=== PATIENT | male | born 1965 | race Hispanic/Latino ===

== ENCOUNTER 2017-04-16 04:08 | Inpatient (IN) | payer OTHER ==
[~2017-04-16] VITALS: Ht 175.3 cm; Wt 94.4 kg
[2017-04-16 05:10] LABS: BASOPHILS % (AUTO) 0.5 % (0.0-5.0); EOSINOPHILS % (AUTO) 2.1 % (0.0-8.0); HEMATOCRIT 42.4 % (42-54); MEAN CORPUSCULAR HEMOGLOBIN 29.1 pg (27.0-33.0); MEAN CORPUSCULAR VOLUME 85.6 fL (79-99); MONOCYTES % (AUTO) 8.7 % (3.0-13.0); NEUTROPHILS % (AUTO) 59.7 % (40.0-77.0); PLATELET COUNT (AUTO) 163 K/uL (130-400); RED BLOOD CELL COUNT(AUTO) 4.95 MIL/uL (4.50-6.20); RED CELL DISTRIBUTION WIDTH 14.3 % (11.0-15.5); WHITE BLOOD COUNT (AUTO) 7.6 K/uL (4.8-10.8)
[2017-04-16 05:18] LABS: INR 1.02 (0.85-1.15); PARTIAL THROMBOPLASTIN TIME 27.7 SEC (26.3-35.5); PROTHROMBIN TIME 10.7 SEC (9.6-11.6)
[2017-04-16 05:24] LABS: CREATININE 0.8 mg/dL (0.5-1.5); POTASSIUM 3.4 mmol/L (3.5-5.1)
[2017-04-16 05:36] LABS: ALBUMIN 3.6 g/dL (3.5-5.0); BILIRUBIN,TOTAL 0.6 mg/dL (0.2-1.0); TOTAL PROTEIN, SERUM 7.1 g/dL (6.0-8.3)
[2017-04-16] MEDS ORDERED: IPRATROPIUM/ALBUTEROL SULFATE 3 ML SOLUTION IH ONE (05:58)
[2017-04-16] MEDS ORDERED: ENOXAPARIN SODIUM 100 MG/1 ML SQ ONE (09:56)
[2017-04-16] MEDS ORDERED: FUROSEMIDE 10 MG/ML 4ML VIAL ONE (09:57)
[2017-04-16] MEDS ORDERED: LISINOPRIL 5 MG TABLET ONE (09:57)
[2017-04-16] MEDS ORDERED: ASPIRIN 325 MG TABLET ONE (09:57)
[2017-04-16] MEDS ORDERED: NITROGLYCERIN 1GM/1 INCH PACKET TD ONE (09:58)
[2017-04-16 13:35] LABS: CREATINE KINASE MB 3.4 ng/mL (0.5-3.6); TROPONIN I 0.36 ng/mL (0.00-0.06)
[2017-04-16] MEDS ORDERED: POTASSIUM CHLORIDE 10% ELIXIR 20 MEQ/15 ML UDCUP PO PRN (17:00)
[2017-04-16] MEDS ORDERED: POTASSIUM CHLORIDE 20MEQ/100ML 100 ML IV PRN (17:00)
[2017-04-16] MEDS ORDERED: LIDOCAINE HCL-MPF 1% 2ML VIAL IVP PRN (17:00)
[2017-04-16 17:20] VITALS: BP 147/97
[2017-04-16] MEDS ORDERED: ONDANSETRON HCL 4 MG/2 ML VIAL IVP PRN (17:30)
[2017-04-16] MEDS: FUROSEMIDE 10 MG/ML 4ML VIAL IV SCH (17:52)
[2017-04-16] MEDS: POTASSIUM CHLORIDE 20 MEQ ERTAB PO PRN ×2 (17:52→21:14)
[2017-04-16] MEDS ORDERED: SODIUM CHLORIDE 0.9% 10 ML VIAL IVP PRN (18:00)
[2017-04-16] MEDS: NITROGLYCERIN 1GM/1 INCH PACKET TD SCH (18:56)
[2017-04-16 20:31] VITALS: BP 157/75
[2017-04-16] MEDS: LISINOPRIL 2.5 MG TABLET PO SCH (21:11)
[2017-04-16] MEDS: FAMOTIDINE 20MG TAB 20 MG TAB PO SCH (21:11)
[2017-04-16 23:20] VITALS: BP 150/95
[2017-04-17] VITALS (7 sets, daily range): BP systolic 112–136; BP diastolic 58–96
[2017-04-17] MEDS: NITROGLYCERIN 1GM/1 INCH PACKET TD SCH ×3 (03:11→17:36)
[2017-04-17] MEDS: FUROSEMIDE 10 MG/ML 4ML VIAL IV SCH (04:58)
[2017-04-17 06:08] LABS: CREATININE 1.1 mg/dL (0.5-1.5); MAGNESIUM 1.9 mg/dL (1.80-2.40); POTASSIUM 3.4 mmol/L (3.5-5.1)
[2017-04-17] MEDS ORDERED: IOPAMIDOL-370 100 ML VIAL IV ONE (10:23)
[2017-04-17] MEDS: FUROSEMIDE 40 MG TABLET PO SCH (12:13)
[2017-04-17] MEDS: FAMOTIDINE 20MG TAB 20 MG TAB PO SCH ×2 (12:13→20:42)
[2017-04-17] MEDS: ASPIRIN 325MG EC TAB 325 MG TABLET.DR PO SCH (12:13)
[2017-04-17] MEDS: POTASSIUM CHLORIDE 20 MEQ ERTAB PO PRN ×2 (12:14→17:37)
[2017-04-17] MEDS: LISINOPRIL 2.5 MG TABLET PO SCH ×2 (12:15→20:39)
[2017-04-17] MEDS: ENOXAPARIN SODIUM 30 MG/0.3 ML SQ SCH (12:17)
[2017-04-17] MEDS: CARVEDILOL 3.125 MG TABLET PO SCH ×2 (12:17→20:42)
[2017-04-17] MEDS: ACETAMINOPHEN EXTRA STRENGTH 500 MG TABLET PO PRN ×2 (12:25→20:39)
[2017-04-18] MEDS: NITROGLYCERIN 1GM/1 INCH PACKET TD SCH ×3 (01:48→16:58)
[2017-04-18 03:45] VITALS: BP 126/82
[2017-04-18 05:37] LABS: CREATININE 1.1 mg/dL (0.5-1.5); POTASSIUM 3.8 mmol/L (3.5-5.1)
[2017-04-18 07:51] VITALS: BP 130/77
[2017-04-18] MEDS: CARVEDILOL 3.125 MG TABLET PO SCH ×2 (09:31→22:31)
[2017-04-18] MEDS: LISINOPRIL 2.5 MG TABLET PO SCH ×2 (09:31→22:31)
[2017-04-18] MEDS: ENOXAPARIN SODIUM 30 MG/0.3 ML SQ SCH (09:32)
[2017-04-18] MEDS ORDERED: REGADENOSON 0.4 MG/5 ML PF SYG IVP SCH (10:15)
[2017-04-18 13:25] VITALS: BP 122/72
[2017-04-18] MEDS: FUROSEMIDE 40 MG TABLET PO SCH (13:34)
[2017-04-18] MEDS: FAMOTIDINE 20MG TAB 20 MG TAB PO SCH ×2 (13:34→22:31)
[2017-04-18] MEDS: ASPIRIN 325MG EC TAB 325 MG TABLET.DR PO SCH (13:34)
[2017-04-18 16:31] VITALS: BP 100/71
[2017-04-18 20:00] VITALS: BP 133/84
[2017-04-18 23:37] VITALS: BP 124/71
[2017-04-19] MEDS: NITROGLYCERIN 1GM/1 INCH PACKET TD SCH ×2 (02:17→08:51)
[2017-04-19 04:21] VITALS: BP 101/74
[2017-04-19 08:03] VITALS: BP 121/84
[2017-04-19] MEDS: ASPIRIN 325MG EC TAB 325 MG TABLET.DR PO SCH (08:46)
[2017-04-19] MEDS: FAMOTIDINE 20MG TAB 20 MG TAB PO SCH ×2 (08:46→20:37)
[2017-04-19] MEDS: CARVEDILOL 3.125 MG TABLET PO SCH ×2 (08:46→20:38)
[2017-04-19] MEDS: FUROSEMIDE 40 MG TABLET PO SCH (08:46)
[2017-04-19] MEDS: LISINOPRIL 2.5 MG TABLET PO SCH ×2 (08:48→20:37)
[2017-04-19] MEDS: ENOXAPARIN SODIUM 30 MG/0.3 ML SQ SCH (08:50)
[2017-04-19 11:57] VITALS: BP 133/74
[2017-04-19 16:37] VITALS: BP 113/78
[2017-04-19 20:03] VITALS: BP 148/88
[2017-04-20] VITALS (14 sets, daily range): BP systolic 112–141; BP diastolic 73–87
[2017-04-20] MEDS: FUROSEMIDE 40 MG TABLET PO SCH ×2 (09:00→15:09)
[2017-04-20] MEDS: ENOXAPARIN SODIUM 30 MG/0.3 ML SQ SCH (09:00)
[2017-04-20] MEDS: ASPIRIN 81 MG EC TAB PO SCH (09:00)
[2017-04-20] MEDS ORDERED: HEPARIN SODIUM 1000UNIT/ML 10ML VIAL ONE (12:11)
[2017-04-20] MEDS ORDERED: BIVALIRUDIN 250 MG/VIAL IV ONE (12:11)
[2017-04-20] MEDS ORDERED: IOPAMIDOL-370 75 ML VIAL IV ONE (12:12)
[2017-04-20] MEDS ORDERED: IOPAMIDOL-370 100 ML VIAL IV ONE (12:12)
[2017-04-20] MEDS ORDERED: LIDOCAINE HCL 2% 20ML ONE (12:14)
[2017-04-20] MEDS ORDERED: MIDAZOLAM HCL 1 MG/ML 2ML VIAL ONE (12:54)
[2017-04-20] MEDS ORDERED: FENTANYL CITRATE PF 50 MCG/1 ML 2ML VIAL ONE (13:01)
[2017-04-20] MEDS ORDERED: ISOVUE-370 50ML VIAL IV ONE (13:16)
[2017-04-20] MEDS ORDERED: SODIUM CHLORIDE 0.9% 1000ML 1,000 ML IV SCH (13:33)
[2017-04-20] MEDS: LISINOPRIL 2.5 MG TABLET PO SCH ×2 (15:09→20:02)
[2017-04-20] MEDS: FAMOTIDINE 20MG TAB 20 MG TAB PO SCH ×2 (15:10→20:02)
[2017-04-20] MEDS: CARVEDILOL 3.125 MG TABLET PO SCH ×2 (15:11→15:25)
[2017-04-20] MEDS: ACETAMINOPHEN EXTRA STRENGTH 500 MG TABLET PO PRN (20:09)
[2017-04-21] MEDS ORDERED: SODIUM CHLORIDE 0.9% 1000ML 1,000 ML IV ONE (00:09)
[2017-04-21 03:00] VITALS: BP 127/84
[2017-04-21 05:59] LABS: BASOPHILS % (AUTO) 0.5 % (0.0-5.0); EOSINOPHILS % (AUTO) 4.2 % (0.0-8.0); HEMATOCRIT 42.7 % (42-54); LYMPHOCYTES % (AUTO) 26.1 % (21.0-51.0); MEAN CORPUSCULAR HEMOGLOBIN 29.1 pg (27.0-33.0); MEAN CORPUSCULAR HGB CONC 33.9 g/dL (32.0-36.0); MEAN CORPUSCULAR VOLUME 85.6 fL (79-99); MONOCYTES % (AUTO) 12.5 % (3.0-13.0); NEUTROPHILS % (AUTO) 56.7 % (40.0-77.0); PLATELET COUNT (AUTO) 160 K/uL (130-400); RED BLOOD CELL COUNT(AUTO) 4.99 MIL/uL (4.50-6.20); RED CELL DISTRIBUTION WIDTH 14.5 % (11.0-15.5); WHITE BLOOD COUNT (AUTO) 7.5 K/uL (4.8-10.8)
[2017-04-21 06:10] LABS: CREATININE 0.8 mg/dL (0.5-1.5); POTASSIUM 3.8 mmol/L (3.5-5.1)
[2017-04-21 06:16] LABS: INR 1.03 (0.85-1.15); PARTIAL THROMBOPLASTIN TIME 28.2 SEC (26.3-35.5); PROTHROMBIN TIME 10.8 SEC (9.6-11.6)
[2017-04-21 07:07] LABS: B-TYPE NATRIURETIC PEPTIDE 147 pg/mL (0-100)
[2017-04-21 08:11] VITALS: BP 134/86
[2017-04-21] MEDS: FUROSEMIDE 40 MG TABLET PO SCH (09:37)
[2017-04-21] MEDS: ENOXAPARIN SODIUM 30 MG/0.3 ML SQ SCH (09:38)
[2017-04-21] MEDS: FAMOTIDINE 20MG TAB 20 MG TAB PO SCH ×2 (09:38→20:43)
[2017-04-21] MEDS: ASPIRIN 81 MG EC TAB PO SCH (09:38)
[2017-04-21] MEDS: LISINOPRIL 2.5 MG TABLET PO SCH ×2 (09:38→20:43)
[2017-04-21] MEDS ORDERED: SODIUM CHLORIDE 0.9% 1000ML 1,000 ML IV SCH ×2 (10:00→10:27)
[2017-04-21 11:46] VITALS: BP 135/83
[2017-04-21] MEDS: ACETAMINOPHEN EXTRA STRENGTH 500 MG TABLET PO PRN (12:42)
[2017-04-21 15:15] VITALS: BP 126/82
[2017-04-21 19:00] VITALS: BP 129/89
[2017-04-21 23:00] VITALS: BP 146/82
[2017-04-22] VITALS (11 sets, daily range): BP systolic 112–135; BP diastolic 63–93
[2017-04-22] MEDS ORDERED: FENTANYL CITRATE PF 50 MCG/1 ML 2ML VIAL ONE ×2 (09:09→10:05)
[2017-04-22] MEDS ORDERED: MIDAZOLAM HCL 1 MG/ML 2ML VIAL ONE ×5 (09:10→13:00)
[2017-04-22] MEDS ORDERED: HEPARIN SODIUM 1000UNIT/ML 10ML VIAL ONE (11:53)
[2017-04-22] MEDS ORDERED: LIDOCAINE HCL 2% 20ML ONE (11:53)
[2017-04-22] MEDS ORDERED: MEPERIDINE-PF 25 MG/ML SYG ONE ×3 (11:53→13:00)
[2017-04-22] MEDS ORDERED: METOPROLOL TARTRATE 1 MG/ML 5ML VIAL IV ONE (13:44)
[2017-04-22] MEDS ORDERED: ACETAMINOPHEN-CODEINE 300/30MG TAB PO PRN ×2 (15:00)
[2017-04-22] MEDS: FAMOTIDINE 20MG TAB 20 MG TAB PO SCH ×2 (15:01→20:52)
[2017-04-22] MEDS: LISINOPRIL 2.5 MG TABLET PO SCH ×2 (15:02→20:52)
[2017-04-22] MEDS: FUROSEMIDE 40 MG TABLET PO SCH (15:02)
[2017-04-22] MEDS ORDERED: ACETAMINOPHEN-CODEINE 300/30MG TAB ONE (15:04)
[2017-04-22] MEDS: METOPROLOL TARTRATE 25 MG TAB PO SCH ×2 (15:05→20:52)
[2017-04-22] MEDS: APIXABAN 5 MG TABLET PO SCH (20:55)
[2017-04-23 03:00] VITALS: BP 131/72
[2017-04-23 07:00] VITALS: BP 141/80
[2017-04-23] MEDS: APIXABAN 5 MG TABLET PO SCH (09:10)
[2017-04-23] MEDS: METOPROLOL TARTRATE 25 MG TAB PO SCH (09:10)
[2017-04-23] MEDS: FUROSEMIDE 40 MG TABLET PO SCH (09:11)
[2017-04-23] MEDS: LISINOPRIL 2.5 MG TABLET PO SCH (09:11)
[2017-04-23] MEDS: FAMOTIDINE 20MG TAB 20 MG TAB PO SCH (09:11)
[2017-04-23] MEDS ORDERED: FURO40TA7 PO (09:20)
[2017-04-23] MEDS ORDERED: APIX5TAB PO (09:20)
[2017-04-23] MEDS ORDERED: METO25 PO (09:20)
[2017-04-23] MEDS ORDERED: LISI2.5T2 PO (09:20)
[2017-04-23 11:00] VITALS: BP 124/80
== END 2017-04-23 13:01 | disposition home or self-care (01) | DRG 287 ==
LOC: EDH 04:08 → EDHIP 04:09 → OBSVTOIN 04:09 → 4DH 16:56 → 4CH 04-17 18:52
PROVIDERS: ADMIT Family Medicine; ATTEND Family Medicine
PROC: 4A023N7 Measurement of Cardiac Sampling and Pressure, Left Heart, Percutaneous Approach (ICD-10-PCS; principal; 2017-04-20)
PROC: B2111ZZ Fluoroscopy of Multiple Coronary Arteries using Low Osmolar Contrast (ICD-10-PCS; 2017-04-20)
PROC: B41F1ZZ Fluoroscopy of Right Lower Extremity Arteries using Low Osmolar Contrast (ICD-10-PCS; 2017-04-20)
PROC: B2151ZZ Fluoroscopy of Left Heart using Low Osmolar Contrast (ICD-10-PCS; 2017-04-20)
DX: I11.0 Hypertensive heart disease with heart failure (principal); I42.0 Dilated cardiomyopathy; I48.92 Unspecified atrial flutter; I34.0 Nonrheumatic mitral (valve) insufficiency; I50.21 Acute systolic (congestive) heart failure; F10.10 Alcohol abuse, uncomplicated; J06.9 Acute upper respiratory infection, unspecified; F17.210 Nicotine dependence, cigarettes, uncomplicated; I25.2 Old myocardial infarction; Z82.49 Family history of ischemic heart disease and other diseases of the circulatory system
CPT/HCPCS: 36415; 71045; 71275; 78452; 80048; 80053; 82550; 82553; 83735; 83874; 83880; 84443; 84484; 85025; 85378; 85610; 85730; 93005; 93017; 93306; 93312; 93458; 93613; 93621; 93653; 94640; 96374; 99152; 99153; A9500; C1730; C1732; C1760; C1769; C1894; J0583; J1644; J1650; J1940; J2175; J2250; J2785; J3010; J3490; J7030; Q9967